=== PATIENT | female | born 1940 | race Caucasian/White ===

== ENCOUNTER → 2020-10-10 | Outpatient (CLI) | payer OTHER | LOC: CAT 10:42 | PROVIDERS: ATTEND Family Medicine | DX: Z13.6 Encounter for screening for cardiovascular disorders (principal); I25.10 Atherosclerotic heart disease of native coronary artery without angina pectoris; E78.00 Pure hypercholesterolemia, unspecified ==

== ENCOUNTER → 2021-01-01 | Outpatient (CLI) | payer OTHER ==
--- NOTE | 2021-01-01 11:08 | 2DMMODE ---
[facility] [place] [address] 2 D/M-MODE ECHOCARDIOGRAM Name: QUENTIN DENT Room #: REG AHMET GomezRu#: [id number] Admission: 01/01/21 Attend Phys: Franco Boyle MD Discharge: Date of : 42 Report #: [id number] THIS REPORT FOR: cc: Franco Boyle MD, Rene P. MD Santiago, Patrick MD [facility] ~ APPROVED REPORT Study performed: 01/01/2021 09:31:34 EXAM: Comprehensive 2D, Doppler, and color-flow Echocardiogram Patient Location: Out-Patient Status: routine BSA: 1.82 HR: 75 bpm BP: 115/75 mmHg Rhythm: NSR Other Information Study Quality: Adequate Indications AV calcification seen on calcium score. Rule out aortic stenosis. 2D Dimensions RVDd: 28.64 mm IVSd: 9.39 (7-11mm) LVOT Diam: 19.65 (18-24mm) LVDd: 42.86 mm PWd: 8.75 (7-11mm) Ascending Ao: 29.59 (22-36mm) LVDs: 30.06 (25-40mm) Left Atrium: 32.60 (27-40mm) Aortic Root: 34.19 mm Volumes Left Atrial Volume (Systole) Single Plane 4CH: 27.24 mL Single Plane 2CH: 41.18 mL LA ESV Index: 19.00 mL/m2 Aortic Valve AoV Peak Tj.: 1.55 m/s AO Peak Gr.: 9.60 mmHg LVOT Max P.97 mmHg LVOT Max V: 1.22 m/s EDMOND Vmax: 2.39 cm2 [facility] [address] [place] [address] 2 D/M-MODE ECHOCARDIOGRAM Name: QUENTIN DENT Room #: [facility]#: [id number] Admission: 01/01/21 Attend Phys: Jason Melgar Discharge: Date of : 42 Report #: [id number] Mitral Valve E/A Ratio: 0.9 MV Decel. Time: 215.68 ms MV E Max Tj.: 0.67 m/s MV A Tj.: 0.75 m/s MV PHT: 62.55 ms IVRT: 121.11 ms Pulmonary Valve PV Peak Tj.: 0.96 m/s PV Peak Gr.: 3.69 mmHg Pulmonary Vein P Vein S: 0.65 m/s P Vein D: 0.31 m/s P Vein S/D Ratio: 2.10 Tricuspid Valve TR Peak Tj.: 2.69 m/s RAP Estimate: 5.00 mmHg TR Peak Gr.: 29.04 mmHg PA Pressure: 34.00 mmHg Left Ventricle The left ventricle is normal size. There is normal LV segmental wall motion. There is normal left ventricular wall thickness. Left ventricular systolic function is normal. LVEF is 65%. Mild diastolic dysfunction is present (impaired relaxation pattern). Right Ventricle The right ventricle is normal size. The right ventricular systolic function is normal. Atria The left atrium size is normal. The right atrium size is normal. Aortic Valve Aortic valve is trileaflet; mildly calcified. No aortic regurgitation is present. There is no aortic valvular stenosis. Mitral Valve The mitral valve is normal in structure. Mild mitral regurgitation. No evidence of mitral valve stenosis. Tricuspid Valve The tricuspid valve is normal in structure. Mild tricuspid [facility] [address] [place] [address] 2 D/M-MODE ECHOCARDIOGRAM Name: QUENTIN DENT Room #: REG [facility].#: [id number] Admission: 01/01/21 Attend Phys: Jason Melgar Discharge: Date of : 42 Report #: [id number] regurgitation. Estimated PAP is 34mmHg. Pulmonic Valve The pulmonary valve is normal in structure. Mild pulmonic regurgitation. Great Vessels The aortic root is normal in size. The ascending aorta is normal in size. IVC is normal in size and collapses >50% with inspiration. Pericardium There is no pericardial effusion. <Conclusion> Normal left ventricular size/wall thickness Ejection fraction 60-65% Normal right ventricular size/function Normal atrial size Color-flow Doppler study was performed of the aortic/mitral/tricuspid/pulmonary valve Mild aortic valve calcification without stenosis Mild mitral valve insufficiency Mild tricuspid valve insufficiency Pulmonary systolic pressure estimated at 34 mmHg No pericardial effusion Normal aortic root size. <ELECTRONICALLY SIGNED> By: Nikolai Donnelly MD, FACC 01/01/21 1108 1108 [id number] Nikolai Donnelly MD, FACC /INF
== END ==
LOC: CV 09:58
PROVIDERS: ATTEND Family Medicine
DX: I08.8 Other rheumatic multiple valve diseases (principal); E78.00 Pure hypercholesterolemia, unspecified

== ENCOUNTER → 2021-05-07 | Outpatient (CLI) | payer OTHER ==
[~2021-05-07] MED LIST: ASA81BEC PO; B COMPLEX1 EACH PO; CO-ENZYME Q-1010 MG PO; FISH OIL 1,001000 M3 PO; JOINT HEALTH T1 EACH PO; MILK THISTLE175 M1 PO; MULTIVITAMINS1 EAC6 PO; OMEPRAZOLE40 MG PO; POTASSIUM GLUC500 MG PO; PROBIOTIC1 EAC7 PO; RALOXIFENE HCL60 MG PO; STOOL SOFTENER100 M1 PO; TURMERIC500 M2 PO; VITAMIN D350 MC3 PO; VITAMIN K100 MCG PO; ZINC50 MG PO
== END ==
LOC: LAB 12:13
PROVIDERS: ATTEND Student in an Organized Health Care Education/Training Program
DX: Z01.812 Encounter for preprocedural laboratory examination (principal); Z20.822 Contact with and (suspected) exposure to COVID-19

== ENCOUNTER → 2021-05-11 | Outpatient (CLI) | payer OTHER ==
[~2021-05-11] VITALS: Ht 170.2 cm; Wt 70.8 kg
--- NOTE | 2021-05-12 14:07 | PATH ---
[facility] [address] [place] [address] PATHOLOGY RPT PROCEDURE Name: MOLLY DENT Room #: REG [facility] Jonah.#: [id number] Admission: 05/11/21 Date of : 42 Discharge: Report #: [id number] Path Case #: [id number] [facility] Accession Number: [id number] . 01 Material submitted: . colon - ASCENDING COLON POLYP. Modifiers: ascending . 01 Clinical history: . DIVERTICULOSIS, COLON POLYPS, HEMORRHOIDS . 02 Diagnosis: Ascending colon polyp, polypectomy: - Tubular adenoma. - Negative for high grade dysplasia or malignancy. (ANK:jc; 05/12/2021) QMS 05/12/2021 1037 Local . 02 Electronically signed: . Essie Vidal MD, Pathologist NPI- [id number] . 01 Gross description: . The specimen is received in formalin, labeled "Molly Dent, ascending colon". The source is additionally listed on the requisition as "ascending colon polyp". Received are 2 segments of pale gleason tissue measuring 0.3 and 0.5 cm in maximum dimensions. The specimen is entirely submitted in cassette A1. ([facility]; 05/11/2021) NRI/NRI 05/11/2021 1656 Local . 02 Pathologist provided ICD-10: D12.2 . 02 CPT . 329885 Specimen Comment: A courtesy copy of this report has been sent to [phone] Specimen Comment: [phone], Specimen Comment: Report sent to , DR FERNANDEZ / DR SMITH Performed at: [address], [place] [id number] MD Trevon Wheeler MD Phone: [phone] Performed at: [address] [id number] MD Addis Mills MD Phone: [phone]
== END | disposition home or self-care (01) ==
LOC: GI 08:31
PROVIDERS: ATTEND Internal Medicine Gastroenterology
DX: Z12.11 Encounter for screening for malignant neoplasm of colon (principal); Z80.0 Family history of malignant neoplasm of digestive organs; D12.2 Benign neoplasm of ascending colon; K57.30 Diverticulosis of large intestine without perforation or abscess without bleeding; K64.8 Other hemorrhoids; R12 Heartburn; K21.9 Gastro-esophageal reflux disease without esophagitis; K44.9 Diaphragmatic hernia without obstruction or gangrene; Q39.6 Congenital diverticulum of esophagus; E78.5 Hyperlipidemia, unspecified; Z98.890 Other specified postprocedural states; Z79.899 Other long term (current) drug therapy; Z87.891 Personal history of nicotine dependence; Z87.442 Personal history of urinary calculi; Z90.49 Acquired absence of other specified parts of digestive tract; Z88.2 Allergy status to sulfonamides
CPT/HCPCS: 62110; 62900